=== PATIENT | male | born 2000 | race Caucasian/White ===

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

== ENCOUNTER 2019-04-08 10:35 | Emergency (ER) | payer OTHER ==
[2019-04-08] MEDS ORDERED: NS 0.9% 1000 ML** 1,000 ML IV ONE (11:26)
--- NOTE | 2019-04-08 11:33 | ED ---
Substance Abuse/Use - HPI Summary HPI Summary: Patient is a 18yo M presenting to the ED from [place] . Patient presents with obvious intoxication. Slurred speech and unable to keep eyes open. He is alert to person only and not oriented to place or time. He arrives by private care. Unsure how much he drank. Endoreses eating something that was given to him, most likely an edible, but is unsure. He denies nausea at this time, but per friend who dropped him off states he had a few episodes of vomiting. 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 Overdose Characteristics: Oral Timing Of Abuse: Binge Use Severity Initially: Severe Severity Currently: Mild Character: Stuporous Aggravating Factor(s): Nothing Alleviating Factor(s): Nothing Associated Signs And Symptoms: Intentional Ingestion Related Hx: Drug/Alcohol Last Used @ - Approximately 1 hour 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, Possible Multi Drug Ingestion - Alcohol and marijuana, no other drug use - Risk Factor(s) Completed Suicide Risk Factors: [place] - Allergies/Home Medications Allergies/Adverse Reactions: Allergies Allergy/AdvReac Type Severity Reaction Status Date / Time latex Allergy Unknown Verified 04/08/19 10:41 Reaction Details PMH/Surg Hx/FS Hx/Imm Hx Previously Healthy: Yes - Immunization History Hx Pertussis Vaccination: No Immunizations Up to Date: Yes Infectious Disease History: No Infectious Disease History: Denies: Traveled Outside the [place] in Last 30 Days - Family History Family History: LEVEL 5 CAVEAT: FHx LIMITED DUE TO PT CONDITION, ETOH INTOXICATION - Social History Occupation: Student Lives: Dormitory/Roommates Alcohol Use: Occasionally Hx Substance Use: Yes - edibles on this date Substance Use Type: Reports: Other Substance Use Comment - Amount & Last Used: DARION Hx Tobacco Use: No Smoking Status (MU): Unknown if Ever Smoked Review of Systems - ROS Summary Review of Systems Summary: unable to assess for HPI d/t patients orientation/confusion Negative: Fever, Chills Positive: Vomiting, Nausea Genitourinary: Negative Positive: no symptoms reported, see HPI Skin: Negative Negative: Headache, Weakness All Other Systems Reviewed And Are Negative: Yes Physical Exam Triage Information Reviewed: Yes Vital Signs On Initial Exam: Initial Vitals Temp Pulse Resp BP Pulse Ox 97.6 F 104 16 129/52 97 04/08/19 10:39 04/08/19 10:39 04/08/19 10:39 04/08/19 10:39 04/08/19 10:39 Vital Signs Reviewed: Yes Completion Of Physical Exam Limited Due To: Altered Mental Status Appearance: Positive: Ill-Appearing Skin: Positive: Diaphoretic Head/Face: Positive: Normal Head/Face Inspection Eyes: Positive: Other: - mydriasis Neck: Positive: Supple, No Lymphadenopathy Respiratory/Lung Sounds: Positive: Clear to Auscultation, Breath Sounds Present Cardiovascular: Positive: Pulses are Symmetrical in both Upper and Lower Extremities. Negative: Tachycardia, Leg Edema Left, Leg Edema Right Bowel Sounds: Positive: Present Musculoskeletal: Positive: Normal, Strength/ROM Intact Neurological: Positive: Slurred Speech, Other - alert to person only Psychiatric: Positive: Affect/Mood Appropriate AVPU Assessment: Pain (Reponds To) - responds to painful stimuli - [place] Coma Scale Best Eye Response: 2 - To Pain Best Motor Response: 5 - Purposeful Movement Best Verbal Response: 2 - Incomprehensible Words Coma Scale Total: 9 Diagnostics - Vital Signs Vital Signs Temp Pulse Resp BP Pulse Ox 04/08/19 11:05 87 18 123/52 94 04/08/19 10:39 97.6 F 104 16 129/52 97 - Laboratory Lab Statement: Any lab studies that have been ordered have been reviewed, and results considered in the medical decision making process. Course/Dx - Course Course Of Treatment: on arrival into the ED, patient is alert to person only, but not oriented to place or time. He states he ate an edible and drink alcohol prior to arrival. He endorses 2 episodes of vomiting, but no nausea currently. It is difficult for him to keep his eyes open and he states he is cold. Vital signs are stable. He is given 1 L fluids. Alcohol level 38. Patient did not give urine sample. Patient is ambulating after 3.5 hours and drinking fluids. He appears improved and is near baseline. He will be dc'd back to [facility] with safe ride. - Diagnoses Differential Diagnosis/HQI/PQRI: Positive: Other - Polysubstance use, multiple drug ingestion, marijuana use, alcohol use Provider Diagnoses: Alcohol use, Marijuana use Discharge - Sign-Out/Discharge Documenting (check all that apply): Patient Departure Patient Received Moderate/Deep Sedation with Procedure: No - Discharge Plan Condition: Stable Disposition: HOME Patient Education Materials: Polysubstance Abuse (ED) Referrals: No Primary Care Phys,NOPCP [Primary Care Provider] - Additional Instructions: Did not take drugs or drink alcohol Drink plenty of Gatorade and water Rest today - Billing Disposition and Condition Condition: STABLE Disposition: Home
[2019-04-08 15:58] VITALS: BP 103/47
== END 2019-04-08 16:07 | disposition home or self-care (01) ==
LOC: ED 10:35
DX: F10.929 Alcohol use, unspecified with intoxication, unspecified (principal); Y90.1 Blood alcohol level of 20-39 mg/100 ml; F12.90 Cannabis use, unspecified, uncomplicated; Z91.040 Latex allergy status
CPT/HCPCS: 36415; 80320; 96360; 99283; G0480